=== PATIENT | male | born 2000 | race Caucasian/White ===

== ENCOUNTER 2020-02-09 01:58 | Emergency (ER) | payer OTHER ==
[~2020-02-09] VITALS: Ht 177.8 cm; Wt 87.5 kg
[2020-02-09 02:11] VITALS: BP 142/86; Ht 177.8 cm; Wt 87.5 kg
== END 2020-02-09 02:42 | disposition home or self-care (01) ==
LOC: ED 01:58
DX: S66.911A Strain of unspecified muscle, fascia and tendon at wrist and hand level, right hand, initial encounter (principal); S86.912A Strain of unspecified muscle(s) and tendon(s) at lower leg level, left leg, initial encounter; V48.5XXA Car driver injured in noncollision transport accident in traffic accident, initial encounter; Y93.I9 Activity, other involving external motion; Y92.488 Other paved roadways as the place of occurrence of the external cause; Y99.8 Other external cause status